=== PATIENT | female | born 1960 | race Caucasian/White ===

== ENCOUNTER 2022-09-26 09:16 | Emergency (ER) | payer OTHER ==
[~2022-09-26] VITALS: Ht 154.9 cm; Wt 64.0 kg
[2022-09-26] MEDS ORDERED: KETOROLAC 15MG/ML VIAL IV ONE (10:30)
[2022-09-26 10:53] LABS: BASOPHILS % 0.5 % (0.0-2.0); EOSINOPHILS % 1.1 % (0.0-5.0); HEMATOCRIT. 46.6 % (36.0-48.0); HEMOGLOBIN. 15.5 g/dL (12.0-16.0); LYMPHOCYTES % 16.5 % (20.0-50.0); MEAN CORPUSCULAR HEMOGLOBIN 29.4 pg (28.0-32.0); MEAN CORPUSCULAR VOLUME 88.6 fL (81.0-99.0); MEAN PLATELET VOLUME 6.8 fl (7.4-10.4); MONOCYTES % 7.1 % (2.0-8.0); NEUTROPHILS % 74.8 % (40.0-76.0); PLATELET 338 x1000/uL (130-400); RED BLOOD CELL COUNT 5.26 mill/uL (4.2-5.4); RED CELL DISTRIBUTION WIDTH 14.8 % (11.6-14.6)
[2022-09-26 10:55] LABS: CLARITY URINE CLEAR (CLEAR); COLOR URINE YELLOW (YELLOW); KETONES URINE NEGATIVE (NEGATIVE); LEUKOCYTE ESTERASE URINE NEGATIVE (NEGATIVE); NITRITE URINE NEGATIVE (NEGATIVE); OCCULT BLOOD URINE NEGATIVE (NEGATIVE); PH URINE 5.5 (4.5-8.0); PROTEIN URINE NEGATIVE (NEGATIVE); SPECIFIC GRAVITY URINE 1.026 (1.005-1.030); UROBILINOGEN URINE 0.2 E.U./dL (0.2-1.0)
[2022-09-26 11:00] LABS: CHLORIDE 105 mEq/L (98-107)
[2022-09-26] MEDS ORDERED: MORPHINE SULFATE 4 MG/ML CPJ (NOT FOR IM USE) IV ONE (11:45)
[2022-09-26] MEDS ORDERED: IBUP-2028 MT (12:13)
[2022-09-26] MEDS ORDERED: TOPUD MT (12:13)
[2022-09-26 12:31] LABS: CREATINE KINASE 52 IU/L (26-192)
[2022-09-26 14:10] VITALS: BP 112/78
== END 2022-09-26 12:27 | disposition home or self-care (01) ==
LOC: ER 09:16
DX: M25.562 Pain in left knee (principal)
CPT/HCPCS: 36415; 73562; 80053; 81003; 82550; 83690; 85025; 93971; 96374; 96375; 99285; J1885; J2270; L1830